=== PATIENT | male | born 1995 | race Caucasian/White ===

== ENCOUNTER 2023-07-16 17:31 | Inpatient (IN) ==
[2023-07-16] MEDS ORDERED: Droperidol 5 MG/2 ML 2 ML VIAL ONE (17:35)
[2023-07-16] MEDS ORDERED: Midazolam 5 mg/5 ml VIAL 1 mg/ml 5 ml VIAL (5 mg) IV SLOW PU ONE (17:38)
[2023-07-16] MEDS ORDERED: Midazolam 5 mg/ml concentrated 5 mg/ml 1 ml VIAL ONE (17:38)
[2023-07-16] MEDS ORDERED: Midazolam 5 mg/5 ml VIAL 1 mg/ml 5 ml VIAL (5 mg) ONE (17:39)
[2023-07-16] MEDS ORDERED: Lactated Ringers 1000 ml BAG 1,000 ML IV ONE ×3 (17:40→20:57)
[2023-07-16] MEDS ORDERED: Droperidol 5 MG/2 ML 2 ML VIAL IV ONE ×3 (17:53→18:46)
[2023-07-16 18:04] LABS: ABS Basophils 0.1 10^3/uL (0.0-0.1); ABS Eosinophils 0.4 10^3/uL (0.0-0.5); ABS Lymphocytes 3.7 10^3/uL (1.0-4.8); ABS Monocytes 0.9 10^3/uL (0.0-1.1); ABS Neutrophils 8.9 10^3/uL (1.5-7.6); ABS Nucleated RBC 0.03 10^3/ul; Eosinophil % 2.9 %; Hematocrit 48.1 % (38-53); Hemoglobin 16.5 g/dL (13.2-16.3); Lymphocyte % 26.4 %; Mean Corpuscular Hemoglobin 31.4 pg (27-33); Mean Corpuscular Hgb Conc 34.4 g/dL (31-36); Mean Corpuscular Volume 91.2 fL (80-97); Mean Platelet Volume 8.6 fL (7.5-11.2); Nucleated Red Blood Cells % 0.2 /100 WBC (0.0-0.4); Platelet Count 364 10^3/uL (150-450); Red Blood Count 5.28 10^6/uL (4.06-5.63); Red Cell Distribution Width 13.2 % (12-17)
[2023-07-16 18:11] LABS: INR 0.95 (0.83-1.13)
[2023-07-16 18:29] LABS: Albumin 4.8 g/dL (3.2-5.2); Anion Gap 18 mmol/L (2-16); CO2 Carbon Dioxide 18 mmol/L (22-32); Calcium 9.8 mg/dL (8.6-10.3); Chloride 101 mmol/L (101-111); Potassium 3.6 mmol/L (3.5-5.0); Sodium 137 mmol/L (135-145)
[2023-07-16 18:35] LABS: ALT 38 U/L (7-52); AST 26 U/L (13-39); Albumin/Globulin Ratio 1.7 (1-3); Alkaline Phosphatase 111 U/L (35-149); Blood Urea Nitrogen 8 mg/dL (6-24); Creatine Kinase 91 U/L (10-223); Creatinine, Serum 1.16 mg/dL (0.67-1.17); Globulin 2.9 g/dL (2-4); Glucose 104 mg/dL (70-100); Total Protein 7.7 g/dL (6.4-8.9); eGFR CKD-EPI 86.9 (>60)
[2023-07-16 18:41] LABS: High Sens Troponin Baseline 3 pg/mL (<20)
[2023-07-16 18:49] LABS: Acetaminophen < 15 mcg/mL; Alcohol, S 16 mg/dL (<13); Salicylate < 2.50 mg/dL (<30)
[2023-07-16 19:02] LABS: TSH Ultra Thyroid Stim Horm 4.13 mcIU/mL (0.34-5.60)
[2023-07-16 19:26] LABS: High Sensitivity Troponin 1 Hr < 3 pg/mL (<20)
[2023-07-16 21:21] LABS: Urine Appearance Clear; Urine Bilirubin Negative (Negative); Urine Blood Negative (Negative); Urine Color Straw; Urine Glucose Negative (Negative); Urine Ketones Negative (Negative); Urine Nitrite Negative (Negative); Urine Protein Negative (Negative); Urine Specific Gravity 1.004 (1.002-1.030); Urine Urobilinogen Negative (Negative)
[2023-07-16 21:52] LABS: Urine Benzodiazepine Screen Presumptive Positive (None Detect); Urine Cannabinoids Screen Presumptive Positive (None Detect); Urine Opiates Screen None Detected (None Detect)
[2023-07-17] MEDS ORDERED: Al Hydrox/Mg Hydrox/Simet LIQ 30 ML UDC PO PRN (11:09)
[2023-07-18] MEDS: Nicotine PATCH 7 MG/24 HR PATCH TRANSDERM SCH (16:10)
[2023-07-19] MEDS: Nicotine PATCH 7 MG/24 HR PATCH TRANSDERM SCH (09:01)
[2023-07-20] MEDS: Nicotine PATCH 7 MG/24 HR PATCH TRANSDERM SCH (09:23)
[2023-07-21] MEDS: Nicotine PATCH 7 MG/24 HR PATCH TRANSDERM SCH (07:41)
[2023-07-22] MEDS: Nicotine PATCH 7 MG/24 HR PATCH TRANSDERM SCH (09:33)
[2023-07-23 08:25] LABS: HDL Cholesterol 34.2 mg/dL
[2023-07-23] MEDS: Nicotine PATCH 7 MG/24 HR PATCH TRANSDERM SCH (10:00)
[2023-07-24] MEDS: Nicotine PATCH 7 MG/24 HR PATCH TRANSDERM SCH (10:05)
[2023-07-25] MEDS: Nicotine PATCH 7 MG/24 HR PATCH TRANSDERM SCH (08:42)
[2023-07-25 10:43] VITALS: BP 135/78
== END 2023-07-25 10:30 | disposition home or self-care (01) | DRG 883 ==
LOC: ED 17:31 → EDHOLD 07-17 11:09 → BSU 07-17 13:03
PROVIDERS: ADMIT Psychiatry & Neurology Psychiatry; ATTEND Psychiatry & Neurology Psychiatry